=== PATIENT | female | born 1965 | race Caucasian/White ===

== ENCOUNTER 2018-06-04 13:19 | Emergency (ER) | payer MEDICAID, OTHER ==
[~2018-06-04] VITALS: Ht 160 cm; Wt 53.9 kg
[2018-06-04 13:27] VITALS: BP 161/79
--- NOTE | 2018-06-04 13:33 | NUR ---
52 Y/O FEMALE PRESENTS TO ED WITH C/O BACK PAIN. "MY BACK HAS BEEN HURTING FOR ABOUT 4 DAYS. IT'S MAKING MY LEGS AND HANDS FEEL NUMB." PT WAS AMBULATORY WITH STEADY GAIT TO ROOM. NO ACUTE DISTRESS NOTED. NO C/O N/V/D, TRAUMA, LOSS OF BOWEL/BLADDER, CP, SOB.
[2018-06-04] MEDS ORDERED: METHOCARBAMOL 750 MG TABLET ONE (13:55)
[2018-06-04] MEDS ORDERED: HYDROcodone/APAP 5/325 TABLET ONE (13:55)
[2018-06-04] MEDS ORDERED: KETOROLAC 30 MG/1 ML ONE (13:55)
--- NOTE | 2018-06-04 13:59 | NUR ---
[facility] in [facility], [place] - 06/04/18 at 1400 by PRABHA PT STATES "MY SISTER IS COMING TO PU
[2018-06-04] MEDS ORDERED: METHOCARBAMOL 750 MG TABLET PO ONE (14:00)
[2018-06-04] MEDS ORDERED: KETOROLAC 30 MG/1 ML IM ONE (14:00)
[2018-06-04] MEDS ORDERED: HYDROcodone/APAP 5/325 TABLET PO ONE (14:00)
--- NOTE | 2018-06-04 14:00 | NUR ---
PT EDUCATED REGARDING MEDICATIONS TO BE ADMINISTERED. PT STATES "MY SISTER IS COMING TO PICK ME UP."
--- NOTE | 2018-06-04 14:02 | NUR ---
PT TO IMAGING
[2018-06-04 14:08] LABS: BASOPHILS # (AUTO) 0.06 x10^3/uL (0-0.1); BASOPHILS % (AUTO) 1 % (0-1); EOSINOPHILS # (AUTO) 0.13 x10^3/uL (0-0.4); EOSINOPHILS % (AUTO) 1 % (1-7); LYMPHOCYTES # (AUTO) 2.72 x10^3/uL (1-3.4); LYMPHOCYTES % (AUTO) 31 % (22-44); MD NO; MEAN CORPUSCULAR HGB CONC 34.2 g/dL (32.4-35.8); MEAN CORPUSCULAR VOLUME 99.7 fL (80-100); MEAN PLATELET VOLUME 9.1 fL (7.4-10.4); MONOCYTES # (AUTO) 0.46 x10^3/uL (0.2-0.8); MONOCYTES % (AUTO) 5 % (2-9); NEUTROPHILS # (AUTO) 5.56 x10^3/uL (1.8-6.8); NEUTROPHILS % (AUTO) 62 % (42-75); PLATELET COUNT 168 x10^3/uL (130-400); RED BLOOD COUNT 4.95 x10^6/uL (3.82-5.3); RED CELL DISTRIBUTION WIDTH 13.4 % (9.6-15.2)
[2018-06-04 14:17] LABS: ALBUMIN 3.2 g/dL (3.4-5.0); ANION GAP 8 mmol/L (5-15); CALCIUM 8.7 mg/dL (8.5-10.1); CHLORIDE 103 mmol/L (98-107); CREATININE 0.72 mg/dL (0.55-1.02)
--- NOTE | 2018-06-04 15:01 | NUR ---
Patient/Caregiver given discharge instructions and they have confirmed that they understand the instructions. Patient ambulatory with steady gait. PT LEFT WITH ALL PERSONAL BELONGINGS
== END 2018-06-04 15:07 | disposition home or self-care (01) ==
LOC: ED 15:00
DX: S39.012A Strain of muscle, fascia and tendon of lower back, initial encounter (principal); M48.56XA Collapsed vertebra, not elsewhere classified, lumbar region, initial encounter for fracture; E10.65 Type 1 diabetes mellitus with hyperglycemia; X58.XXXA Exposure to other specified factors, initial encounter; Y93.89 Activity, other specified; Y92.89 Other specified places as the place of occurrence of the external cause; Y99.8 Other external cause status
CPT/HCPCS: 36415; 72072; 72110; 80048; 82040; 85025; 96372; 99284; J1885

== ENCOUNTER 2018-06-14 04:33 | Emergency (ER) | payer MEDICAID, OTHER ==
[~2018-06-14] VITALS: Ht 160 cm; Wt 55.7 kg
[2018-06-14] MEDS ORDERED: INSU100V8 SQ (04:42)
--- NOTE | 2018-06-14 04:45 | NUR ---
PATIENT ARRIVES TO THE ER WITH SWELLING AND PAIN OF RIGHT ANKLE AND LEG THAT BEGAN 21:00 YESTERDAY. SHE WAS AT WORK, AND SHE THOUGHT MAYBE IT WAS FROM BEING ON HER FEET (SHE WORKS [employer]) BUT THE SWELLING GOT WORSE NOT BETTER. SHE HAS SOME SWELLING ON HER ANKLE, CAP REFILL 3 SECONDS. IN BED, GOWN, MONITOR, RAILS UP.
--- NOTE | 2018-06-14 04:48 | NUR ---
PATIENT STATES THAT THREE YEARS AGO SHE HAD LOWER EXTREMITY SWELLING AND THE DIAGNOSIS WAS THAT POST DISCHARGE FROM A SEPSIS VISIT TO HOSPITAL SHE WENT INTO CHF ACCORDING TO HER. IT RESOLVED AND SHE HAS HAD NO ISSUES SINCE EXCEPT KIDNEY ISSUES. HER KIDNEY ISSUES THAT BEGAN FROM SEPSIS [facility] THREE YEARS AGO LEFT HER WITH REOCCURANT KIDNEY INFECTIONS.
[2018-06-14] MEDS ORDERED: GLIP-33 PO (04:58)
[2018-06-14] MEDS ORDERED: GABA300C10 PO (04:58)
--- NOTE | 2018-06-14 05:48 | NUR ---
PATIENT AWAITING ULTRASOUND.
[2018-06-14 06:39] VITALS: BP 122/78
--- NOTE | 2018-06-14 06:39 | NUR ---
DISCHARGE TEACHING REVIEWED. PATIENT SHOWS UNDERSTANDING.
== END 2018-06-14 06:46 | disposition home or self-care (01) ==
LOC: ED 06:13
DX: M79.661 Pain in right lower leg (principal); E10.65 Type 1 diabetes mellitus with hyperglycemia
CPT/HCPCS: 82962; 99284